=== PATIENT | female | born 1945 | race African-American/Black ===

== ENCOUNTER 2016-04-20 20:35 | Emergency (ER) | payer MEDICARE, OTHER ==
[~2016-04-20] VITALS: Ht 172.7 cm; Wt 90.9 kg
[2016-04-20 21:11] LABS: GLUCOSE,POINT OF CARE 83 MG/DL (70-110)
[2016-04-20 21:23] LABS: BASOPHILS # (AUTO) 0.03 K/uL (0.00-0.20); BASOPHILS % (AUTO) 0.3 % (0.0-2.0); EOSINOPHILS # (AUTO) 0.17 K/uL (0.00-0.70); EOSINOPHILS % (AUTO) 2.13 % (1.0-6.0); HEMATOCRIT 39.4 % (36-46); HEMOGLOBIN 12.9 g/dL (12.0-16.0); LYMPHOCYTES # (AUTO) 2.5 K/uL (1.0-4.8); LYMPHOCYTES % (AUTO) 31.3 % (22.0-44.0); MEAN CORPUSCULAR HEMOGLOBIN 30.9 pg (26.0-34.0); MEAN CORPUSCULAR HGB CONC 32.8 G/dL (31.0-37.0); MEAN CORPUSCULAR VOLUME 94 fL (80-100); MONOCYTES # (AUTO) 0.8 K/uL (0.1-1.0); MONOCYTES % (AUTO) 10.5 % (2.0-9.0); NEUTROPHILS # (AUTO) 4.5 K/uL (1.8-7.7); NEUTROPHILS % (AUTO) 55.8 % (40.0-70.0); PLATELET COUNT (AUTO) 312 K/uL (150-450); RED BLOOD CELL COUNT(AUTO) 4.17 MIL/uL (4.00-5.20); RED CELL DISTRIBUTION WIDTH 13.2 % (11.5-14.5); WHITE BLOOD COUNT (AUTO) 8.1 K/uL (4.5-11.0)
[2016-04-20] MEDS ORDERED: CLON.1 PO (21:24)
[2016-04-20] MEDS ORDERED: FURO40 PO (21:24)
[2016-04-20] MEDS ORDERED: ASPI1CPM8 PO (21:24)
[2016-04-20] MEDS ORDERED: METO-323 PO (21:24)
[2016-04-20] MEDS ORDERED: LEVE500T53 PO (21:24)
[2016-04-20] MEDS ORDERED: LOSA25TA21 PO (21:24)
[2016-04-20 21:31] LABS: ANION GAP 13 mmol/L (8-16); CALCIUM, TOTAL 9.4 mg/dL (8.8-10.5); CARBON DIOXIDE 27 mmol/L (22-29); CHLORIDE 102 mmol/L (98-107); CREATININE 1.58 mg/dL (0.60-1.30); GLOMERULAR FILTR. RATE CALC 39 mL/min (>60); POTASSIUM 3.4 mmol/L (3.5-5.1); SODIUM SERUM 142 mmol/L (136-145); UREA NITROGEN, BLOOD 18 mg/dL (7-18)
[2016-04-20 21:37] LABS: ALANINE AMINOTRANSFERASE 21 U/L (12-78); ALBUMIN 3.9 g/dL (3.4-5.0); ASPARTATE AMINOTRANSFERASE 22 U/L (15-37); BILIRUBIN,TOTAL 1.1 mg/dL (0.1-1.0); TOTAL PROTEIN, SERUM 8.9 g/dL (6.4-8.2)
[2016-04-20] MEDS ORDERED: POTASSIUM CHLORIDE 10% 40 MEQ/30 ML LIQUID UDCUP PO ONE (23:00)
[2016-04-21 10:47] VITALS: BP 140/79
== END 2016-04-21 11:10 | disposition home or self-care (01) ==
LOC: EMS 20:38
DX: R45.851 Suicidal ideations (principal); I10 Essential (primary) hypertension
CPT/HCPCS: 36415; 80053; 82962; 85025; 99285; G0480

== ENCOUNTER 2016-04-21 13:03 | Inpatient (IN) | payer MEDICARE, OTHER ==
[~2016-04-21] VITALS: Ht 172.7 cm; Wt 103.4 kg
[~2016-04-21 13:03] MED LIST: ASPI1CPM8 PO; CLON.1 PO; FURO40 PO; LEVE500T53 PO; LOSA25TA21 PO; METO-323 PO
[2016-04-21] MEDS ORDERED: HALOPERIDOL 5 MG TABLET PO ONE (13:45)
[2016-04-21] MEDS ORDERED: LORazepam 2 MG TABLET PO ONE (13:45)
[2016-04-21] MEDS ORDERED: LORazepam 1 MG TABLET PO ONE (13:45)
[2016-04-21] MEDS ORDERED: LORazepam 2 MG TABLET PO PRN (18:45)
[2016-04-21] MEDS ORDERED: HALOPERIDOL 5 MG TABLET PO PRN (18:45)
[2016-04-21] MEDS ORDERED: ZOLPIDEM TARTRATE 10 MG TABLET PO PRN (18:45)
[2016-04-22 07:57] VITALS: BP 124/68
[2016-04-22] MEDS ORDERED: POTASSIUM CHLORIDE 20 MEQ ER TABLET PO ONE (10:30)
[2016-04-22] MEDS ORDERED: INFLUENZA VIRUS VACCINE QVS 2016-17 (3YR+)/PF 60 MCG/0.5 ML SYRINGE IM ONE (10:45)
[2016-04-22] MEDS ORDERED: PNEUMOCOCCAL VACCINE POLYVALENT 0.5 ML VIAL [PPSV23] IM ONE (10:45)
[2016-04-22] MEDS: LevETIRAcetam 500 MG TABLET PO SCH ×2 (10:56→16:21)
[2016-04-22] MEDS: FUROSEMIDE 40 MG TABLET PO SCH (12:40)
[2016-04-22 12:41] VITALS: BP 115/74
[2016-04-22 16:05] VITALS: BP 123/86
[2016-04-22] MEDS: METOPROLOL TARTRATE 25 MG TABLET PO SCH (16:20)
[2016-04-22] MEDS: ASPIRIN/DIPYRIDAMOLE ER 25/200 MG ER CAPSULE PO SCH (16:21)
[2016-04-22] MEDS: CloNIDine HCL 0.1 MG TABLET PO SCH (21:26)
[2016-04-23 06:36] VITALS: BP 117/65
[2016-04-23 08:26] VITALS: BP 120/81
[2016-04-23] MEDS: FUROSEMIDE 40 MG TABLET PO SCH (08:37)
[2016-04-23] MEDS: METOPROLOL TARTRATE 25 MG TABLET PO SCH ×2 (08:37→16:23)
[2016-04-23] MEDS: LevETIRAcetam 500 MG TABLET PO SCH ×2 (08:37→16:23)
[2016-04-23] MEDS: ASPIRIN/DIPYRIDAMOLE ER 25/200 MG ER CAPSULE PO SCH ×2 (08:37→16:23)
[2016-04-23] MEDS: LOSARTAN POTASSIUM 25 MG TABLET PO SCH (08:37)
[2016-04-23 09:24] LABS: BILIRUBIN,TOTAL 0.4 mg/dL (0.1-1.0); CALCIUM, TOTAL 8.5 mg/dL (8.8-10.5); CHOL/HDL RATIO 2.5 (3.9-5.7); CREATININE 1.78 mg/dL (0.60-1.30); POTASSIUM 3.3 mmol/L (3.5-5.1); THYROID STIMULATING HORMONE 1.31 uIU/mL (0.36-3.74); TOTAL PROTEIN, SERUM 7.1 g/dL (6.4-8.2)
[2016-04-23] MEDS ORDERED: POTASSIUM CHLORIDE 20 MEQ ER TABLET PO ONE (10:00)
[2016-04-23 16:21] VITALS: BP 126/69
[2016-04-23] MEDS: CloNIDine HCL 0.1 MG TABLET PO SCH (21:00)
[2016-04-24 05:49] VITALS: BP 123/67
[2016-04-24] MEDS: ASPIRIN/DIPYRIDAMOLE ER 25/200 MG ER CAPSULE PO SCH ×2 (08:21→16:17)
[2016-04-24] MEDS: FUROSEMIDE 40 MG TABLET PO SCH (08:21)
[2016-04-24] MEDS: METOPROLOL TARTRATE 25 MG TABLET PO SCH ×2 (08:21→16:17)
[2016-04-24] MEDS: LevETIRAcetam 500 MG TABLET PO SCH ×2 (08:21→16:17)
[2016-04-24] MEDS: LOSARTAN POTASSIUM 25 MG TABLET PO SCH (08:21)
[2016-04-24 08:24] VITALS: BP 120/79
[2016-04-24 16:13] VITALS: BP 117/72
[2016-04-24] MEDS: CloNIDine HCL 0.1 MG TABLET PO SCH (21:19)
[2016-04-24] MEDS ORDERED: HYDROCORTISONE 1% 30 GM CREAM TP PRN (21:30)
[2016-04-25 06:45] VITALS: BP 127/74
[2016-04-25 08:44] VITALS: BP 128/74
[2016-04-25] MEDS: LevETIRAcetam 500 MG TABLET PO SCH ×2 (09:00→16:24)
[2016-04-25] MEDS: FUROSEMIDE 40 MG TABLET PO SCH (09:00)
[2016-04-25] MEDS: LOSARTAN POTASSIUM 25 MG TABLET PO SCH (09:00)
[2016-04-25] MEDS: ASPIRIN/DIPYRIDAMOLE ER 25/200 MG ER CAPSULE PO SCH ×2 (09:00→16:24)
[2016-04-25] MEDS: METOPROLOL TARTRATE 25 MG TABLET PO SCH ×2 (09:00→16:24)
[2016-04-25 16:00] VITALS: BP 124/67
[2016-04-25 20:00] VITALS: BP 117/68
[2016-04-25] MEDS: CloNIDine HCL 0.1 MG TABLET PO SCH (20:14)
[2016-04-25 20:20] LABS: KEPPRA (LEVETIRACETAM) LEVEL 64.3 ug/mL (10.0-40.0)
[2016-04-26 07:49] VITALS: BP 118/86
[2016-04-26] MEDS: LevETIRAcetam 500 MG TABLET PO SCH (08:31)
[2016-04-26] MEDS: FUROSEMIDE 40 MG TABLET PO SCH (08:31)
[2016-04-26] MEDS: LOSARTAN POTASSIUM 25 MG TABLET PO SCH (08:31)
[2016-04-26] MEDS: METOPROLOL TARTRATE 25 MG TABLET PO SCH ×2 (08:31→17:15)
[2016-04-26] MEDS: ASPIRIN/DIPYRIDAMOLE ER 25/200 MG ER CAPSULE PO SCH ×2 (08:31→17:15)
[2016-04-26 08:46] VITALS: BP 134/77
[2016-04-26 16:27] VITALS: BP 134/73
[2016-04-26 20:53] VITALS: BP 127/74
[2016-04-26] MEDS: CloNIDine HCL 0.1 MG TABLET PO SCH (20:58)
[2016-04-27 05:55] VITALS: BP 118/72
[2016-04-27 06:17] VITALS: BP 119/71
[2016-04-27 08:27] VITALS: BP 120/68
[2016-04-27] MEDS: ASPIRIN/DIPYRIDAMOLE ER 25/200 MG ER CAPSULE PO SCH ×2 (09:04→16:54)
[2016-04-27] MEDS: FUROSEMIDE 40 MG TABLET PO SCH (09:05)
[2016-04-27] MEDS: METOPROLOL TARTRATE 25 MG TABLET PO SCH ×2 (09:05→16:54)
[2016-04-27] MEDS: LevETIRAcetam 500 MG TABLET PO SCH (09:05)
[2016-04-27] MEDS: LOSARTAN POTASSIUM 25 MG TABLET PO SCH (09:05)
[2016-04-27 16:00] VITALS: BP 128/75
[2016-04-27 20:57] VITALS: BP 125/78
[2016-04-27] MEDS: CloNIDine HCL 0.1 MG TABLET PO SCH (21:00)
[2016-04-28 07:20] VITALS: BP 114/65
[2016-04-28] MEDS: METOPROLOL TARTRATE 25 MG TABLET PO SCH ×2 (08:06→16:56)
[2016-04-28] MEDS: FUROSEMIDE 40 MG TABLET PO SCH (08:07)
[2016-04-28] MEDS: ASPIRIN/DIPYRIDAMOLE ER 25/200 MG ER CAPSULE PO SCH ×2 (08:08→16:56)
[2016-04-28 08:22] VITALS: BP 113/78
[2016-04-28] MEDS: LOSARTAN POTASSIUM 25 MG TABLET PO SCH (09:54)
[2016-04-28] MEDS: LevETIRAcetam 500 MG TABLET PO SCH (09:55)
[2016-04-28 16:01] VITALS: BP 141/78
[2016-04-28 21:02] VITALS: BP 116/65
[2016-04-28] MEDS: CloNIDine HCL 0.1 MG TABLET PO SCH (21:05)
[2016-04-29 06:13] VITALS: BP 123/69
[2016-04-29 08:16] VITALS: BP 134/79
[2016-04-29] MEDS: METOPROLOL TARTRATE 25 MG TABLET PO SCH ×2 (08:34→09:00)
[2016-04-29] MEDS: LOSARTAN POTASSIUM 25 MG TABLET PO SCH ×2 (08:34→09:00)
[2016-04-29] MEDS: ASPIRIN/DIPYRIDAMOLE ER 25/200 MG ER CAPSULE PO SCH ×2 (08:34→09:00)
[2016-04-29] MEDS: LevETIRAcetam 500 MG TABLET PO SCH ×2 (08:34→09:00)
[2016-04-29] MEDS: FUROSEMIDE 40 MG TABLET PO SCH ×2 (08:34→09:00)
[2016-04-29] MEDS: CYANOCOBALAMIN 100 MCG TABLET PO SCH ×2 (08:34→09:00)
[2016-04-29] MEDS ORDERED: LEVE500T53 PO (10:51)
== END 2016-04-29 12:00 | DRG 885 ==
LOC: EEVIPCON 13:03 → EMS 13:04 → AHU 22:31 → B2S 04-22 08:52
PROVIDERS: ADMIT Psychiatry & Neurology Psychiatry; ATTEND Psychiatry & Neurology Psychiatry
DX: F29 Unspecified psychosis not due to a substance or known physiological condition (principal); R45.851 Suicidal ideations; F43.23 Adjustment disorder with mixed anxiety and depressed mood; G40.909 Epilepsy, unspecified, not intractable, without status epilepticus; I10 Essential (primary) hypertension; F41.9 Anxiety disorder, unspecified; E87.6 Hypokalemia; E66.3 Overweight; G31.84 Mild cognitive impairment of uncertain or unknown etiology; G47.00 Insomnia, unspecified; Z68.34 Body mass index [BMI] 34.0-34.9, adult; Z28.21 Immunization not carried out because of patient refusal; Z88.5 Allergy status to narcotic agent; Z88.0 Allergy status to penicillin; Z88.8 Allergy status to other drugs, medicaments and biological substances; Z79.899 Other long term (current) drug therapy; Z98.890 Other specified postprocedural states
CPT/HCPCS: 84132; 84443; 84481; 90471; 99285; G0482